=== PATIENT | female | born 1970 | race Two or more races ===

== ENCOUNTER 2019-08-29 05:17 | Day surgery (SDC) | payer OTHER ==
[2019-08-28 13:38] VITALS: BMI 32.3
--- NOTE | 2019-08-29 14:20 | HP ---
History & Physical Update - History History: No Change - Physical Physical: No Change - Assessment Assessment: No Change - Plan Plan: No Change (H&P reviwed , no changes)
[2019-08-29] MEDS ORDERED: oxyCODONE HCL 5 MG TABLET PO PRN ×2 (14:35)
[2019-08-29] MEDS ORDERED: ONDANSETRON 4 MG/2 ML VIAL IVPUSH PRN (14:35)
[2019-08-29] MEDS ORDERED: ACETAMINOPHEN 1000 MG/100 ML VIAL (NON FORMULARY) IVPB ONE (14:39)
[2019-08-29] MEDS ORDERED: PROPOFOL 20 ML ONE ×4 (14:45→14:57)
[2019-08-29] MEDS ORDERED: ONDANSETRON 4 MG/2 ML VIAL ONE (14:45)
[2019-08-29] MEDS ORDERED: LACTATED RINGERS SOLUTION 1,000 ML IV SCH (14:45)
[2019-08-29] MEDS ORDERED: GLYCOPYRROLATE 0.2 MG/1 ML VIAL ONE (14:45)
[2019-08-29] MEDS ORDERED: DEXAMETHASONE SOD PHOSPHATE 4 MG/1 ML VIAL ONE (14:45)
[2019-08-29] MEDS ORDERED: NEOSTIGMINE METHYLSULFATE 0.5 MG/1 ML - 10 ML MDV ONE (14:45)
[2019-08-29] MEDS ORDERED: KETOROLAC TROMETHAMINE 30 MG/1 ML VIAL ONE (14:45)
[2019-08-29] MEDS ORDERED: MIDAZOLAM HCL 2 MG/2 ML SINGLE DOSE VIAL ONE (14:46)
[2019-08-29] MEDS ORDERED: ACETAMINOPHEN INJECTION 100 ML IVPB ONE (16:01)
[2019-08-29 16:49] VITALS: PULSE 76
[2019-08-29 18:47] VITALS: BP 125/80; TEMP 97.8
--- NOTE | 2019-08-29 19:52 | OP ---
DATE OF OPERATION: 08/29/2019 PREOPERATIVE DIAGNOSIS: Endometrial polyp. POSTOPERATIVE DIAGNOSIS: Endometrial polyp. PROCEDURE: Hysteroscopy, dilation and curettage, and polypectomy. SURGEON: Cezar Rojas M.D. ANESTHESIA: General anesthesia. ANESTHESIOLOGIST: Jose Enrique Eng M.D. ESTIMATED BLOOD LOSS: 20 mL. OPERATION: Patient was taken to operating room, had adequate general anesthesia. Abdomen and perineum and vagina were prepped and draped. Examination under anesthesia revealed external genitalia to be normal. Vagina was normal. Cervix was clean, no lesion. Uterus was normal size. Adnexa, no masses were palpable. Then, with a weighted speculum in the vagina, anterior lip of the cervix was grasped with a single-toothed tenaculum. Uterus was sounded to 8 cm. Then cervix was slightly dilated with Hegar dilator, and then a uterine cavity was sounded to 8 cm. Then hysteroscope was introduced and visualization of endocervical canal was normal. There was a small polyp at the lower uterine segment, and there was another one on the fundal area toward the ostium of the left tube. Endometrium appeared to be generally atrophic. No other abnormality was noted. Both ostia were visualized, and then the polyp was removed, and then uterine cavity was curetted. A small amount of tissue was obtained. Patient tolerated procedure well, left the OR in good condition. CEZAR ROJAS M.D. [id number]
--- NOTE | 2019-09-02 16:43 | PATH ---
Surgical Pathology Report Patient Name: SERGIO KNIGHT [facility]. Rec. #: [id number] /Age/Gender: 1970 (Age: 49) / F Account: [id number] Location: [facility] SURGICAL Taken: 08/29/2019 Received: 08/30/2019 Reported: 09/02/2019 Physicians: Cezar Sandhu M.D. Specimen(s) Received A: POLYP B: ENDOMETRIAL CURETTINGS Clinical History Endometrial polyp Final Diagnosis A. POLYP, BIOPSY: POLYPOID CERVICAL SQUAMOUS AND ENDOCERVICAL MUCOSA WITH MODERATE ACUTE AND CHRONIC INFLAMMATION. B. ENDOMETRIAL CURETTINGS, DILATION AND CURETTAGE: STRIPS OF ENDOMETRIAL GLANDS COMPATIBLE WITH ATROPHIC ENDOMETRIUM, LOWER UTERINE SEGMENT, AND BENIGN CERVICAL TISSUE ADMIXED WITH MUCUS. Electronically Signed Ofelia Eduardo M.D. Gross Description A. Received in formalin labeled "polyp," is a 0.7 cm greatest dimension lucas soft tissue fragment. The specimen is submitted in toto in one cassette. B. Received in formalin labeled "endometrial curettings," is a 2.0 x 1.0 x 0.2 cm aggregate of lucas-brown soft tissue fragments admixed with mucus. The formalin is filtered and the specimen is entirely submitted in one cassette. 08/30/201908/30/2019
== END 2019-08-29 17:45 | disposition home or self-care (01) ==
LOC: JASU-SURG 05:17
PROVIDERS: ATTEND Obstetrics & Gynecology
PROC: 0UJD8ZZ Inspection of Uterus and Cervix, Via Natural or Artificial Opening Endoscopic (ICD-10-PCS; 2019-08-29)
PROC: 0UB97ZX Excision of Uterus, Via Natural or Artificial Opening, Diagnostic (ICD-10-PCS; principal; 2019-08-29 15:00)
PROC: 0UDB7ZX Extraction of Endometrium, Via Natural or Artificial Opening, Diagnostic (ICD-10-PCS; 2019-08-29 15:00)
DX: N84.0 Polyp of corpus uteri (principal)
CPT/HCPCS: 84703; 88305-TC; 94760; J0131

== ENCOUNTER 2020-07-28 04:43 | Day surgery (SDC) | payer OTHER ==
[2020-07-27 13:53] VITALS: BMI 32.4
[2020-07-28] MEDS ORDERED: MIDAZOLAM HCL 2 MG/2 ML SINGLE DOSE VIAL ONE (09:37)
[2020-07-28] MEDS ORDERED: PROPOFOL 20 ML ONE (09:39)
[2020-07-28] MEDS ORDERED: LIDOCAINE HCL/PF 2% SDV 5ML VIAL ONE (09:50)
[2020-07-28] MEDS ORDERED: KETOROLAC TROMETHAMINE 30 MG/1 ML VIAL ONE (09:50)
[2020-07-28] MEDS ORDERED: DEXAMETHASONE SOD PHOSPHATE 4 MG/1 ML VIAL ONE (09:50)
[2020-07-28] MEDS ORDERED: CLINDAMYCIN PHOSPHATE 600 MG/4 ML VIAL ONE (10:37)
[2020-07-28] MEDS ORDERED: LACTATED RINGERS SOLUTION 1,000 ML IV SCH (11:00)
[2020-07-28] MEDS ORDERED: oxyCODONE HCL 5 MG TABLET PO PRN ×3 (11:00→12:02)
[2020-07-28] MEDS ORDERED: ONDANSETRON 4 MG/2 ML VIAL IVPUSH PRN ×2 (11:00→12:02)
[2020-07-28] MEDS ORDERED: IBUPROFEN 600 MG TABLET (FP) PO PRN (12:02)
[2020-07-28] MEDS ORDERED: IBUPROFEN 800 MG/8 ML IJ IVPB PRN (12:02)
[2020-07-28] MEDS ORDERED: ELECTROLYTE-148 SOLN 1,000 ML IV SCH (12:15)
[2020-07-28 14:30] VITALS: BP 119/73; PULSE 86; TEMP 98
== END 2020-07-28 13:40 | disposition home or self-care (01) ==
LOC: JASU-SURG 04:43
PROVIDERS: ATTEND Obstetrics & Gynecology
PROC: 0UDB7ZX Extraction of Endometrium, Via Natural or Artificial Opening, Diagnostic (ICD-10-PCS; principal; 2020-07-28 10:00)
PROC: 0UJD8ZZ Inspection of Uterus and Cervix, Via Natural or Artificial Opening Endoscopic (ICD-10-PCS; 2020-07-28 10:00)
DX: N95.0 Postmenopausal bleeding (principal); D25.0 Submucous leiomyoma of uterus; D25.9 Leiomyoma of uterus, unspecified; N72 Inflammatory disease of cervix uteri
CPT/HCPCS: 84703; 88305-TC; 94760